=== PATIENT | male | born 1965 | race Caucasian/White ===

== ENCOUNTER 2024-06-17 09:46 | Outpatient (CLI) | payer MEDICARE, SELFPAY ==
--- NOTE | ~2024-06-17 | CT_ITS ---
CT Scan of the Chest without Contrast: Clinical Indication: COPD Technique: Contiguous sections were acquired throughout the chest without intravenous contrast. Dose reduction technique was used on this scan by utilizing automated exposure control and iterative recon struction technique. The dose-length product (DLP) was 605.15 mGy-cm. Findings: Numerous shotty or mildly prominent mediastinal lymph nodes are present. No aortic aneurysm. Mild cor onary artery calcification. No pericardial effusion. Small bilateral pleural effusions, left greater than right.. There is a 6 mm groundglass nodule at the left lung apex (axial image 21). There is curvilinear atele ctasis or scarring in the inferior left upper lobe. There is mild bibasilar dependent atelectatic beatriz nge. Images through the upper abdomen reveal no abnormalities. There is extensive DISH of the spine. Impression: 6 mm groundglass nodule left upper lobe. Consider one-year follow-up exam. Numerous shotty/. Prominent mediastinal lymph nodes, nonspecific. Atelectatic changes, as above. Reviewed, dictated and finalized at location . HYSICAL PROSPECTOR Impression: 6 mm groundglass nodule left upper lobe. Consider one-year follow-up exam. Numerous shotty/. Prominent mediastinal lymph nodes, nonspecific. Atelectatic changes, as above.
--- OUTSIDE RECORDS SUMMARY | 2024-06-17 10:44 | XMS_ITS | Clinical Summary ---
Author Organization [facility] Address [address] [place] [address] Care Team Providers Care Install And Repair Technician Name Role Phone Cal Mercado MD Primary Care Provider Jacob Hernandez MD Unavailable [phone] Allergies No known active allergies Medications SPIRIVA WITH HANDIHALER 18 mcg per inhalation capsuleIndicati ons:Bronchospas m Prevention with COPD,Maintenanc e Therapy for Asthma Place 1 puff (1 capsule total) into inhaler and inhale every morning 2 7 Active metFORMIN (GLUCOPHAGE) 1,000 mg tabletIndicatio ns:type 2 diabetes mellitus Take 1 tablet (1,000 mg total) by mouth 2 (two) times a day with meals Active JARDIANCE 25 mg tabletIndicatio ns:type 2 diabetes mellitus Take 1 tablet (25 mg total) by mouth every morning 4 8 Active buPROPion XL (WELLBUTRIN XL) 150 mg 24 hr tabletIndicatio ns:Anxiety with Depression Take 1 tablet (150 mg total) by mouth every morning Active insulin glargine (LANTUS) 100 unit/mL injectionIndica tions:DM Inject 75 Units under the skin 2 (two) times a day Active rosuvastatin (CRESTOR) 40 mg tabletIndicatio ns:hyperlipidem ia Take 1 tablet (40 mg total) by mouth nightly Active lisinopriL (PRINIVIL,ZESTR IL) 20 mg tabletIndicatio ns:hypertension Take 1 tablet (20 mg total) by mouth every morning Active fenofibrate micronized (LOFIBRA) 200 mg capsuleIndicati ons:hyperlipide kiera Take 1 capsule (200 mg total) by mouth daily before breakfast Active traZODone (DESYREL) 50 mg tabletIndicatio ns:insomnia associated with depression Take 1 tablet (50 mg total) by mouth nightly Active albuterol 2.5 mg /3 mL (0.083 %) nebulizer solutionIndicat ions:Chronic Obstructive Pulmonary Disease Take 3 mL (2.5 mg total) by nebulization every 6 (six) hours as needed for wheezing or shortness of breath Active metoprolol XL (TOPROL-XL) 25 mg extended release tablet Take 1 tablet (25 mg total) by mouth daily 30 tablet 1 Active Additional Information Patient taking differently:25 mg oralEvery morning, Reported on 12/06/2021 Dulera 100-5 mcg/actuation inhalerIndicati ons:Maintenance Therapy for Asthma Inhale 2 puffs 2 (two) times a day 2 Active albuterol HFA (PROVENTIL HFA,VENTOLIN HFA,PROAIR HFA) 90 mcg/actuation inhaler Inhale 2 puffs every 6 (six) hours as needed for wheezing or shortness of breath 2 Active Trulicity 0.75 mg/0.5 mL pen injectorIndicat ions:type 2 diabetes mellitus Inject 0.5 mL (0.75 mg total) under the skin once a week Saturdays 2 Active gabapentin (NEURONTIN) 100 mg capsuleIndicati ons:Neuropathic Pain,Restless Legs Syndrome Take 1 capsule (100 mg total) by mouth nightly 2 Active oxygenIndicatio ns:Dyspnea Administer 6 L/min into each nostril continuously 4-5 while at rest 6L with activity Active acetaminophen (TYLENOL) 500 mg tablet Take 2 tablets (1,000 mg total) by mouth every 6 (six) hours as needed for pain 30 tablet 2 Active ibuprofen (ADVIL,MOTRIN) 200 mg tab/cap Take 3 tablet/capsule (600 mg total) by mouth every 6 (six) hours as needed for pain 30 capsule 2 Active urinary bag miscIndications :Urinary retention Attach urinary leg drainage bag to catheter. Change weekly. 4 each 11 3 Active Active Problems Problem Noted Date Diagnosed Date Acute renal failure, unspecified acute renal lynnette lure type 02/18/2024 Urinary retention 12/06/2021 Retention of urine 07/05/2021 Assessment & Plan (08/31/2021 2:12 PM CDT): Pt has urinary retention and bilateral hydronephrosis due to atonic bladder, with ortega in place Has catheter changed once a month, is currently overdue by 3-4 days, will change catheter now. Creatinine is wnl Elevated troponin 07/06/2020 Chest pain 07/05/2020 Abnormal stress test 07/05/2020 Overview (07/07/2020): Added automatically from request for surgery [id number] Acute on chronic respiratory failure with hypoxe kiera 04/05/2020 Assessment & Plan (04/05/2020 3:38 AM BOW MAKER): Patient normally on 6 L of home oxygen. Currently requiring 8 L. likely secondary to COVID pneumonia. Will start patient on Decadron. Continuous pulse ox if available. Continue to monitor. Pneumonia due to COVID-19 virus 04/05/2020 Assessment & Plan (08/31/2021 2:06 PM CDT): Pt presenting with SOB, cough, wheezing, tested positive for COVID 19, CXR noted with multifocal pneumonia Has been vaccinated for COVID 19 D- Dimer, LDH and ferritin are unremarkable Continue Decadron and Remdesivir for now Monitor SPO2, currently on 5-6 lpm, same as home requirement Cough meds as needed Assessment & Plan (04/05/2020 3:40 AM BOW MAKER): Suspected. Patient was diagnosed on 03/13/2020. Patient was also started on empiric antibiotics for possible community-acquired pneumonia. Will continue at this time. Will check a procalcitonin level. CTA of the chest if possible. Continue supportive care. COPD (chronic obstructive pulmonary disease) (CM S/HCC) 04/04/2020 Assessment & Plan (08/31/2021 2:16 PM CDT): On steroids for COVID pneumonia Continue home meds, dulera switched with symbicort while admitted Cellulitis of left foot 02/03/2020 Muscular chest pain 12/10/2017 Centrilobular emphysema 12/10/2017 Assessment & Plan (04/05/2020 3:40 AM BOW MAKER): Continue breathing treatment Morbid obesity with BMI of 45.0-49.9, adult 11/22 Obstructive sleep apnea 12/10/2017 Assessment & Plan (04/05/2020 3:40 AM BOW MAKER): Continue NPPV Uncontrolled type 2 diabetes mellitus with hyperglycemia, with long-term current use of insulin 12/10/2017 Assessment & Plan (08/31/2021 2:15 PM CDT): Patient is on very high doses of insulin at home- Lantus 75 units bid, along with Trulicity, metformin and Jardiance Here started on Lantus 65 units bid, with 10 units mealtime Lispro, along with NPH for steroid coverage Monitor accuchecks, titrate regimen Assessment & Plan (04/05/2020 3:43 AM BOW MAKER): Patient states he takes 140-150 units of Lantus daily and had missed many doses since he was diagnosed with COVID due to decreased p.o. intake. Patient was started on 60 units of Lantus however sugars are still elevated as patient also received Solu-Medrol. Will increase Lantus to 80 units nightly. Continue high-dose sliding scale. Will order NPH with Decadron. Continue to monitor and adjust as needed. Chronic respiratory failure with hypoxia (CMS/HC C) 12/10/2017 Assessment & Plan (08/31/2021 2:10 PM CDT): On 5 lpm O2 at home, up to 6-7 lpm with exertion, due to underlying COPD Currently on same requirements, continue to monitor Essential hypertension 12/10/2017 Assessment & Plan (08/31/2021 2:10 PM CDT): BP is well controlled with home meds resumed Continue to monitor Shortness of breath 05/26/2014 Overview (07/30/2016): Shortness of breath Cellulitis of toe of left foot Hyperglycemia Immunizations Immunization Administration Dates Next Due Influenza, Quadrivalent, Spl it, Preservative Free, Intramuscular 02/08/2020,03/26/2014 Pneumococcal Polysaccharide PPV23 03/26/2014 Surgical History Surgery Date Site/Laterality Comments EYE SURGERY eye surgery as a child CARDIAC CATHETERIZATION 07/07/2020 TESTICLE SURGERY 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 BLADDER SURGERY 04/24/2021 - 04/23/2022 interstim-bladder Medical History Medical History Date Comments Sleep apnea Sleep apnea Hypertension Hypertension Chronic obstructive pulmonary disease (HCC) COPD Diabetes mellitus (HCC) Diabetes mellitus Coronary artery disease Ventricular tachycardia (HCC) Sick sinus syndrome (CMS/HCC) (HCC) Shortness of breath Chest pain Arthritis Family History Medical History Relation Name Comments Cerebral aneurysm Brother Coronary artery disease Father Coronary artery disease Mother Diabetes Other 1 Family history of Diabetes mellitus; COPD Other 2 Family history of COPD; Anesthesia problems Neg Hx Relation Name Status Comments Brother Father Mother Other 1 Other 2 Social History Tobacco Use Types Packs/Day Years Used Date Smoking Tobacco: Former Cigarettes 1 25 1 977 - 2001 Smokeless Tobacco: Never Tobacco Cessation:Counseling Given: No Alcohol Use Standard Drinks/Week Comments No 0 (1 standard drink = 0.6 oz pur e alcohol) [facility] Utilities Answer Date Recorded In the past 12 months has [employer], gas, oil, or water [employer] threatened to shut off services in your home? No 02/19/2024 Social Connection and Isolat ion Panel [NHANES] Answer Date Recorded In a typical week, how many times do you talk on the phone with family, friends, or neighbors? More than three times a week 02/19/2024 How often do you get togethe r with friends or relatives? Twice a week 02/19/2024 How often do you attend chur ch or spiritism services? Never 02/19/2024 Do you belong to any clubs o r organizations such as cheondoism groups, unions, fraternal or athletic groups, or school groups? No 02/19/2024 How often do you attend meet ings of the clubs or organizations you belong to? Never 02/19/2024 Are you , , di vorced, , never , or living with a partner? 02/19/2024 AUDIT-C Answer Date Recorded Q1: How often do you have a drink containing alc ohol? Monthly or less 02/18/2024 Q2: How many drinks containi ng alcohol do you have on a typical day when you are drinking? 1 or 2 02/18/2024 Q3: How often do you have si x or more drinks on one occasion? Less than monthly 02/18/2024 Overall Financial Resource Strain (CARDIA) Answe r Date Recorded How hard is it for you to pa y for the very basics like food, housing, medical care, and heating? Not hard at all 02/19/2024 PHQ-2 Answer Date Recorded PHQ-2 Total Score (If total score is 3 or more points, staff should administer the PHQ-9) 0 04/04/2020 Hunger Vital Sign Answer Date Recorded Within the past 12 months, y ou worried that your food would run out before you got the money to buy more. Never true 02/19/20 24 Within the past 12 months, t he food you bought just didn't last and you didn't have money to get more. Never true 02/19/2024 PRAPARE - Transportation Answer Date Re corded In the past 12 months, has l ack of transportation kept you from medical appointments or from getting medications? No 01/23 In the past 12 months, has l ack of transportation kept you from meetings, work, or from getting things needed for daily living? No 02/19/2024 Housing Stability Vital Sign Answer Bryant e Recorded In the last 12 months, was t here a time when you were not able to pay the mortgage or rent on time? No 02/19/2024 In the past 12 months, how m any times have you moved where you were living? 0 02/19/2024 At any time in the past 12 m [facility], were you homeless or living in a [facility] (including now)? No 02/19/2024 Personal Safety Answer Date Recorded Have you ever been in or are you currently in a harmful physical or emotional relationship or is someone making you feel afraid or unsafe? Denies 02/18/2024 Sex and Gender Information Value Date Recorded Sex Assigned at Not on file Legal Sex Male 1:14 AM BOW MAKER Gender Identity Not on file Sexual Orientation Not on file Obstetrics History Last Filed Vital Signs Vital Sign Reading Time Taken Comments Blood Pressure 117/60 02/22/2024 7:37 AM CDT Pulse 88 02/22/2024 8:15 AM CDT Temperature 36.1 C (97 F) 02/22/2024 7:37 AM CDT Respiratory Rate 18 02/22/2024 7:37 AM CDT Oxygen Saturation 100% 02/22/2024 7:37 AM CDT Inhaled Oxygen Concentration - - Weight 150 kg (330 lb 11 oz) 02/18/2024 6:38 PM CDT Height 177.8 cm (5' 10 ) 02/18/2024 6:38 PM CDT Body Mass Index 47.45 02/18/2024 6:38 PM CDT Plan of Treatment Health Maintenance Due Date Last Done Comments Albumin Creatinine Ratio, Urine 1963 Colon Cancer Screening-Colonoscopy 1963 Hemoglobin A1C 1963 Hepatitis C Screening 1963 Prostate Cancer Screening-PSA 1963 Dilated Eye Exam 1963 Foot Exam 1963 DTaP/Tdap/Td Vaccine (1 - Tdap) 1974 Hepatitis B Screening 1981 Regular Well Visit/Exam 18-64 1981 Zoster Vaccine (1 of 2) 2013 Pneumococcal vaccine <65 (3 of 3 - PCV20 or PCV21) 02/20/2020 02/19/2015, 03/26/2014 Depression Screening 04/04/2021 04/04/2020, 02/03/20 20 Lipid Panel 07/06/2021 07/06/2020 Covid-19 Vaccine (5 - 2023-2 5 season) 2023 03/23/2021, 07/21/2020, 06/30/2020, Additional history exists Influenza Vaccine (#1) 2023 , 02/08/2020, 04/24/2017, Additional history exists eGFR 02/21/2025 02/22/2024, 01/24, 02/20/2024, Additional history exists Medical Devices Explanted Type Area Engagement Liaison Device Identifier Shelf Expiration Date Model / Serial / Lot Medtronic Inc Interstim 28cm Quadripolar Mri Food Service Steward Neurostimulator [id number] - [id number] Implanted:Qty: 1 on 11/22/2021 by Becca Billingsley MD at [facility] Explanted:Qty: 1 on 12/06/2021 by Filemon Colón MD at [facility] Lead N/A: Sacrum Medtronic Inc 04/20/2023 [id number] / / Medtronic Inc Interstim 100cm Percutaneous Electrode Insulated Kit [id number] - [id number] Implanted:Qty: 1 on 11/22/2021 by Becca Billingsley MD at [facility] Explanted:Qty: 1 on 12/06/2021 by Filemon Colón MD at [facility] Neurostimulator N/A: Sacrum Medtronic Inc 08/12/2023 [id number] / / Procedures Procedure Name Priority Date/Time Associated Diagnosis Comments EGFR Routine 02/22/2024 5:05 AM CDT LIPID PANEL Routine 07/06/2020 7:26 AM CDT from Last 3 Months or Most Recently Relevant to Health Maintenance Results * eGFR (02/22/2024 5:05 AM CDT) eGFR 61 >=60 mL/min/1. 73 m2 Comment: Interpretive Data Reference Interval Normal >/= 90 mL/min/1.73m2 Mildly decreased* 60 - 89 mL/min/1.73m2 Mildly to moderately decreased 45 - 59 mL/min/1.73m2 Moderately to severely decreased 30 - 44 mL/min/1.73m2 Severely decreased 15 - 29 mL/min/1.73m2 Kidney Failure < 15 mL/min/1.73m2 *Relative to young adult level Estimated glomerular filtration rate is determined by the 2020 CKD-EPI equation recommended by the National Kidney Foundation (A Unifying Approach to GFR Estimation: Recommendations of the NKF-ASK Task Force on Reassessing the Inclusion of Race in Diagnosing Kidney Disease, JASN 2020). The CKD-EPI equation should not be used for patients with unstable renal function and has not been validated in children and those over 70. Current interpretive data was last reviewed 2021. Blood 02/22/2024 5:05 AM CDT 02/22/2024 5:37 AM CDT us Essence Macdonald LABORER [facility] LAB BLOOD ORDERABLES Final R esult [facility] ([place]) 1 [facility] [place] [address] * (ABNORMAL) Lipid panel (07/06/2020 7:26 AM CDT) Cholesterol 176 30 - 199 mg/dL [facility] ([place]) Comment: Interpretive Data Ages < or = 19 years Acceptable: <170 mg/dL Borderline high: 170-199 mg/dL High: >or= 200 mg/dL Ages > or = 20 years Desirable: <200 mg/dL Borderline high: 200-239 mg/dL High: >or= 240 mg/dL Literature References: 1. Expert Panel on Integrated Guidelines for Cardiovascular Health and Risk Reduction in Children and Adolescents. Pediatrics 2011;128:S213 2. NCEP Expert Panel. Circulation 2004;110:227 Current Interpretive Data was last revised on 2017. Triglycerides 172(H) <=149 mg/dL [facility] ([place]) Comment: Interpretive Data Ages < or = 9 years Acceptable: <75 mg/dL Borderline high: 75-99 mg/dL High: >or= 100 mg/dL Ages 10 to 20 years Acceptable: <90 mg/dL Borderline high: 90-129 mg/dL High: >or= 130 mg/dL Ages > or = 20 years Desirable: <150 mg/dL Borderline high: 150-199 mg/dL High: 200-499 mg/dL Very high: >or= 499 mg/dL Literature References: 1. Expert Panel on Integrated Guidelines for Cardiovascular Health and Risk Reduction in Children and Adolescents. Pediatrics 2011;128:S213 2. NCEP Expert Panel. Circulation 2004;110:227 Current Interpretive Data was last revised on 2017. HDL 32(L) >=40 mg/dL [facility] ([place]) Comment: Interpretive Data Ages < or = 19 years Acceptable: >45 mg/dL Borderline low: 40-45 mg/dL Low: <40 mg/dL Ages > or = 20 years Desirable: >or= 60 mg/dL Low: <40 mg/dL Literature References: 1. Expert Panel on Integrated Guidelines for Cardiovascular Health and Risk Reduction in Children and Adolescents. Pediatrics 2011;128:S213 2. NCEP Expert Panel. Circulation 2004;110:227 Current Interpretive Data was last revised on 2017. LDL, calculated 110 <=129 mg/dL [facility] ([place]) Comment: Interpretive Data Ages < or = 19 years Acceptable: <110 mg/dL Borderline high: 110-129 mg/dL High: >or= 130 mg/dL Ages > or = 20 years Optimal: <100 mg/dL Near optimal: 100-129 mg/dL Borderline high: 130-159 mg/dL High: >160 mg/dL Literature References: 1. Expert Panel on Integrated Guidelines for Cardiovascular Health and Risk Reduction in Children and Adolescents. Pediatrics 2011;128:S213 2. NCEP Expert Panel. Circulation 2004;110:227 Current Interpretive Data was last revised on 2017. Non-HDL Cholesterol 144 mg/dL [facility] ([place]) Comment: Interpretive Data Ages < or = 19 years Acceptable: <120 mg/dL Borderline high: 120-144 mg/dL High: >145 mg/dL Ages > or = 20 years When triglycerides are >200 mg/dL, Non-HDL cholesterol is a secondary target of therapy with treatment goals that are 30 mg/dL greater than the LDL cholesterol target. Literature References: 1. Expert Panel on Integrated Guidelines for Cardiovascular Health and Risk Reduction in Children and Adolescents. Pediatrics 2011;128:S213 2. NCEP Expert Panel. Circulation 2004;110:227 Current Interpretive Data was last revised on 2017. Chol/HDL ratio 6 [facility] ([place]) Blood specimen (specimen) 07/06/2020 7:26 AM CDT 07/06/2020 7:46 AM CDT us Stan Boss MD LAB BLOOD ORDERABLES Final Re sult [facility] ([place]) 1 [facility] [place] [address] from Last 3 Months or Most Recently Relevant to Health Maintenance Insurance MEDICARE SOLUTIONS MEDICARE [employer] MANAGED MEDICARE GENERIC MEDICARE SOLUTIONS [facility] MEDICARE Address: [address] [address] [place] [address] Advance Directives For more information, please contact: [phone] * Full Code (Latest Code Status on File) Date Activated Date Inactivated Comments 02/18/2024 6:38 PM 02/22/2024 5:33 PM * Full Code Date Activated Date Inactivated Comments 08/30/2021 7:48 PM 09/01/2021 5:26 PM * Full Code Date Activated Date Inactivated Comments 07/05/2020 10:33 PM 07/08/2020 7:03 PM * Full Code Date Activated Date Inactivated Comments 04/04/2020 6:06 PM 04/09/2020 8:13 PM * Full Code Date Activated Date Inactivated Comments 02/03/2020 4:55 PM 02/08/2020 7:17 PM Healthcare Agents on File Name Relationship Healthcare Agent Relationshi p Communication Jenni Hugo Spouse Health Care Agent Care Teams Install And Repair Technician Relationship Specialty Start Date End Date Cal Mercado MD PCP - General Family Medicine 09/15/17 Jacob Hernandez MD Consulting Physician Infectious Diseases 02/08/20
--- OUTSIDE RECORDS SUMMARY | 2024-06-17 10:44 | XMS_ITS | Referral Summary ---
Author Organization [facility] Address [address] [place] [address] Care Team Providers Care Vertical Borer Name Role Phone Cal Mercado MD Primary Care Provider Jacob Hernandez MD Unavailable [phone] Allergies No known active allergies Medications SPIRIVA [...] (07/07/2020): Added automatically from request for surgery [id number] Acute on chronic respiratory failure with hypoxe kiera 04/05/2020 Assessment & Plan (04/05/2020 3:38 AM TRANSPLANT NURSE): Patient normally on 6 L of home [...] needed Assessment & Plan (04/05/2020 3:40 AM TRANSPLANT NURSE): Suspected. Patient was diagnosed on 03/13/2020. Patient [...] 12/10/2017 Assessment & Plan (04/05/2020 3:40 AM TRANSPLANT NURSE): Continue breathing treatment Morbid obesity with BMI of 45.0-49.9, adult 11/22 Obstructive sleep apnea 12/10/2017 Assessment & Plan (04/05/2020 3:40 AM TRANSPLANT NURSE): Continue NPPV Uncontrolled type 2 diabetes mellitus [...] regimen Assessment & Plan (04/05/2020 3:43 AM TRANSPLANT NURSE): Patient states he takes 140-150 units of [...] Free, Intramuscular 02/08/2020,03/26/2014 Pneumococcal Polysaccharide PPV23 03/26/2014 Social History Tobacco Use Types Packs/Day Years Used Date Smoking Tobacco: Former Cigarettes 1 25 1 977 - 2001 Smokeless Tobacco: Never Tobacco Cessation:Counseling Given: No Alcohol Use Standard Drinks/Week Comments No 0 (1 standard drink = 0.6 oz pur e alcohol) [facility] Utilities Answer Date Recorded In the past 12 months has th e [employer], gas, oil, or water [employer] threatened to shut off services in your [...] often do you attend chur ch or methodist services? Never 02/19/2024 Do you belong to any clubs o r organizations such as taoism groups, unions, fraternal or athletic groups, or [...] any time in the past 12 m [facility], were you homeless or living in a residential (including now)? No 02/19/2024 Personal Safety Answer Date Recorded Have you ever been in or are you currently in a harmful physical or emotional relationship or is someone making you feel afraid or unsafe? Denies 02/18/2024 Sex and Gender Information Value Date Recorded Sex Assigned at Not on file Legal Sex Male 1:14 AM TRANSPLANT NURSE Gender Identity Not on file Sexual Orientation Not on file Last Filed Vital Signs Vital Sign Reading [...] 02/18/2024 6:38 PM CDT Plan of Treatment Not on file Medical Devices Explanted Type Area Curtain Roller Assembler Device Identifier Shelf Expiration Date Model / Serial / Lot Medtronic Inc Interstim 28cm Quadripolar Mri Manager Etl Neurostimulator [id number] - [id number] Implanted:Qty: 1 on 11/22/2021 by Becca Billingsley MD at [facility] Explanted:Qty: 1 on 12/06/2021 by Filemon Colón MD at [facility] Lead N/A: Sacrum Med[employer] Inc 04/20/2023 [id number] / / [employer] Interstim 100cm Percutaneous Electrode Insulated Kit [id number] - [id number] Implanted:Qty: 1 on 11/22/2021 by Becca Billingsley MD at [facility] Explanted:Qty: 1 on 12/06/2021 by Filemon Colón MD at [facility] Neurostimulator N/A: Sacrum [employer] Inc 08/12/2023 [id number] / / Procedures Procedure Name Priority Date/Time [...] 02/22/2024 5:37 AM CDT us Essence Macdonald NP LAB BLOOD ORDERABLES Final R esult [facility] ([place]) 1 [facility] [place] [address] * (ABNORMAL) Lipid panel (07/06/2020 7:26 AM [...] MD LAB BLOOD ORDERABLES Final Re sult [facility] ([place]) 1 [facility] [place] [address] from Last 3 Months or Most Recently Relevant to Health Maintenance Insurance MEDICARE SOLUTIONS MEDICARE [facility] MANAGED MEDICARE GENERIC MEDICARE SOLUTIONS Advance Directives For more information, please contact: [phone] * Full Code (Latest Code Status on [...] Hugo Spouse Health Care Agent Care Teams Vertical Borer Relationship Specialty Start Date End Date Cal Mrecado MD PCP - General Family Medicine 09/15/17 Jacob Hernandez MD Consulting Physician Infectious Diseases 02/08/20
--- OUTSIDE RECORDS SUMMARY | 2024-06-17 10:44 | XMS_ITS | Clinical Summary ---
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 Take 1 tablet by mouth twice daily for 5 doses 4 Active metoprolol Succinate (Toprol XL) 25 MG TABLET SR 24 HR Take 25 mg by mouth daily. Take 1 tablet by mourth daily Active rosuvastatin (CRESTOR) 40 MG Tablet Take 40 mg by mouth daily. Take 1 tablet by mouth at bedtime Active buPROPion SR (WELLBUTRIN SR) 150 MG TABLET SR 12 HR Take 150 mg by mouth daily. Take 1 tablet by mouth daily Active metFORMIN (GLUCOPHAGE) 1000 MG Tablet Take 1,000 mg by mouth 2 times daily (with meals). take 1 tablet by mouth twice daily with meals Active empagliflozin (Jardiance) 25 MG Tablet Take 25 mg by mouth daily. take 1 tablet by mouth daily Active Fenofibrate 200 MG Capsule Take 1 Capsule by mouth daily. take 1 capsule by mouth daily Active gabapentin (NEURONTIN) 100 MG Capsule Take 100 mg by mouth nightly. Take 1 capsule by mouth at bedtime Active traZODone (DESYREL) 50 MG Tablet Take 50 mg by mouth nightly as needed for Sleep. Take 1 tablet by mouth daily at bedtime as needed for insomnia Active acetaminophen (TYLENOL) 500 MG Tablet Take 1,000 mg by mouth every 6 hours as needed for Mild or more severe pain. Take 1000 mg by mouth every 6 hours as needed for pain Active insulin glargine (LANTUS) 100 UNIT/ML Solution 75 Units by Subcutaneous route 2 times daily (before meals). Inject 75 units subcutaneously 2 times daily before meals Active ibuprofen (MOTRIN) 200 MG Tablet Take 600 mg by mouth every 6 hours as needed for Mild or more severe pain. Take 600 mg every 6 hours as needed for pain Active tiotropium (Spiriva HandiHaler) 18 MCG Capsule take 1 Capsule by inhalation every morning. Take 1 capsule by inhalation every morning Active dulaglutide (Trulicity) 0.75 MG/0.5ML Solution Pen-injector injection 0.75 mg by Subcutaneous route once a week. Take .75 mg subcutaneously weekly, Saturdays Active albuterol (PROVENTIL, VENTOLIN) (2.5 MG/3ML) 0.083% Nebulizer Soln 2.5 mg by Nebulization route every 6 hours as needed for Cough, Shortness of Breath or Wheezing. inhale 2.5mg by nebulizer every 6 hours as needed for cough, shortness of breath or wheezing Active Dulaglutide (Trulicity) 4.5 MG/0.5ML Solution Auto-injector 4.5 mg by Subcutaneous route once a week. take 4.5mg subcutaneously under the skin weekly Active QUEtiapine (SEROquel) 100 MG Tablet Take 100 mg by mouth daily. take 1 and 1/2 tablets by mouth daily 4 Active Encounters Date Type Department Care Team Description 03/22/2024 9:30 AM HAND LAMINATOR Home Care Visit [facility] [address] [place] [address] Beatriz Reyes, OT OT - OASIS DISCHARGE from Last 3 Months Social History Tobacco Use Types Packs/Day Years Used Date Smoking Tobacco: Never Assessed Sex and Gender Information Value Date Recorded Sex Assigned at Not on file Legal Sex Male 9:27 PM CDT Gender Identity Not on file Sexual Orientation Not on file Last Filed Vital Signs Vital Sign Reading Time Taken Comments Blood Pressure 118/58 03/22/2024 10:28 AM HAND LAMINATOR Pulse 78 03/22/2024 10:28 AM HAND LAMINATOR Temperature 36.1 C (97 F) 03/22/2024 10:28 AM HAND LAMINATOR Respiratory Rate 18 03/22/2024 10:28 AM HAND LAMINATOR Oxygen Saturation 98% 03/22/2024 10:28 AM HAND LAMINATOR 6L of oxygen Inhaled Oxygen Concentration - - Weight 144.2 kg (318 lb) 02/29/2024 1:29 PM HAND LAMINATOR Height 177.8 cm (5' 10 ) 02/29/2024 1:29 PM HAND LAMINATOR Body Mass Index 45.63 02/29/2024 1:29 PM HAND LAMINATOR Plan of Treatment Health Maintenance Due Date Last Done Comments Hepatitis C Virus (HCV) Screening 1965 Colonoscopy 2008 Colorectal Cancer Screening 2008 Cologuard 2013 Immunochemical Fecal Occult Blood 2013 PSA Discussion 2018 Pneumococcal Immunization (50+ years) (3 of 3 - PCV20 or PCV21) 02/20/2020 02/19/2015, 03/26/2014 Influenza Immunization (#1) 12/24/202303/24, 02/02/2022, 03/23/2021, Additional history exists SARS-COV-2 Immunization ( season) 2023 04/05/2023, 02/02/2022, 03/23/2021, Additional history exists Zoster Immunization (2 of 2) 02/07/2024 12/13/2023 Pneumococcal Immunization Combined Discontinued 02/19/2015, 03/26/2014 TdaP Immunization Completed 06/06/2022 Respiratory Syncytial Virus (RSV) Immunization (Adult) Completed 12/13/2023 Hepatitis B Immunization Aged Out No longer eligible based on patient's age to complete this topic Meningococcal Immunization (ACWY) Aged Out No longer eligible based on patient's age to complete this topic Rotavirus Immunization Aged Out No lo nger eligible based on patient's age to complete this topic Insurance MEDICARE C [employer] Advance Directives * Full Code (Latest Code Status on File) Date Activated Date Inactivated Comments 02/29/2024 6:16 PM Care Teams Assembly Machine Tool Setter Relationship Specialty Start Date End Date Cal Mercado MD [address] [place] [address] PCP - General Family Medicine 02/28/24
--- OUTSIDE RECORDS SUMMARY | 2024-06-17 10:44 | XMS_ITS | Data Portability ---
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 His diabetes is complicated with microvascular complications including peripheral neuropathy and nephropathy His A1c was 6.4 % indicates good glycemic control, CGM was reviewed with the patient. His Glycemic control is highly variable, which is most likely secondary to variable amount of carbohydrate intake with meals. Importance of compliance with diabetic diet was discussed with him. He will continue current diabetes regimen. 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 Obesity: worsened. BMI 46. start TLC HTN. Blood pressure controlled with current treatment RTC in 6 months montez Not available 09/06/2023 13:14:02 04/10/2024 04/10/2024 A 58 years old male with type 2 diabetes, hyperlipidemia, hypertension, obesity came in for follow-up. His diabetes is complicated with microvascular complications including peripheral neuropathy and nephropathy His A1c was 5.5 % has improved since last visit, his CGM was downloaded and reviewed with the patient, interpretation as above. Since overnight his blood sugars are trending down, I will decrease his basal insulin. Postmeal hyperglycemia, will start him on glipizide. Risk-benefit and side effects were discussed. 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 Continue fenofibrate and Crestor. and work on diet. Obesity: He lost 5 pounds since last visit, BMI 46. start TLC HTN. Blood pressure controlled with current treatment RTC in 4 months montez Not available 04/10/2024 10:39:57 Plan of Treatment Reminders Order Date Submit Date Provider Last Modified By Organization Details Last Modified Time Details Appointments [facility] Patient 15.EST 2024 02:30P M Dr. Kamini John Not available Not available Not available Lab HbA1c (hemoglo bin A1c), blood 2023 024 [facility] ([place]), [address] [place] [address], [phone], 04/10/2024 11:54:30 HbA1c (hemoglo bin A1c), blood 2023 024 [facility] ([place]), [address] [place] [address], [phone], 09/06/2023 15:23:37 CMP, serum or plasma 2023 024 [facility] [place] [facility], [address] [place] [address], [id number], 11/23/2023 13:44:29 microalb umin, urine 2023 024 [facility] Only - [place] [facility], [address] [place] [address], [id number], 11/23/2023 13:34:17 vitamin B12, serum [address] Only - [facility], [address] [place] [address], [address], 12/11/2023 10:18:50 lipid panel, serum [address] Only - [facility], [address] [place] [address], [id number], 12/11/2023 10:18:49 Referral None recorded . Procedures None recorded . Surgeries None recorded . Imaging None recorded . Medication Orders glipizid e ER 2.5 mg tablet, extended release 24 hr 2023 024 [id number], [address], [place], [phone], 04/10/2024 10:27:22 Patient TargetsNo targets recorded. Patient InstructionsNo instructions recorded. Reason for Referral None Reported. Results Created Date Observation Date Name Description Value Unit Range Abnormal Flag Note LastModifiedBy Organization Detail LastModifiedTime 09/06/1909/06/2023 HbA1c (hemo globi n A1c), blood HbA1c 6.4% Not Available [facility] ([place]) [address] [place], [address], 09/06/2023 09:56:50 04/10/20 24 04/10/2024 HbA1c (hemo globi n A1c), blood HbA1c 5.6% Not Available [facility] ([place]) [address] [place], [address], 04/08/2024 13:53:04 02/20/20 24 05/09/2023 imagi ng/di agnos tic resul t No observ ation record ed. [email or web address] Not Available 22:49:03 02/20/2007/29/2023 imagi ng/di agnos tic resul t No observ ation record ed. [email or web address] Not Available 22:49:05 Result Notes None recorded. Problems Name Problem SNOMED Code Status Onset Date Resolution Date Notes Provider Name and Address Organization Details Recorded Time Morbid obesity 657048618 Active 2023 Kamini John MD [address] , [facility] [place], [address], [facility] 4 10:40:06 Type 2 diabetes mellitus 37113577 Active 2023 Rohit Rodriguez, [facility] 4 09:56:39 Obesity 634806081 Active 2023 Kamini John MD [address] [facility], [place], [address], [facility] 4 12:51:01 Essential hypertension 80520703 Active 2023 Kamini John MD [address] , [facility] [place], [address], [facility] 4 12:51:05 Hyperlipidemia 52898759 Active 2023 Kamini John MD [address] , [facility] [place], [address], [facility] 4 12:51:09 Diabetic peripheral neuropathy 089807071 Active 2023 Kamini John MD [address] , [facility] [place], [address], [facility] 4 12:51:16 Problem Notes None recorded. Procedures Surgical History Date Name Laterality Status Provider Name and Address Organization Details Recorded Time Colonoscopy with biopsy completed Not Available Health Note 09/05/2023 13:32:54 Imaging Results Imaging Date Name Status LastModified by Organ ation Details LastModified Time 05/09/2023 imaging/diag nostic result completed Information not available 02/20/2024 22:49:03 07/29/2023 imaging/diag nostic result completed Information not available 02/20/2024 22:49:05 Procedure Notes None recorded. Medical Equipment None Reported. Medications Name Sig Start Date Stop Date Status Note LastModified by Organization Details LastModified Time Prescript ion - New active Spanish Tutor: YANI HOFFMAN ([facility] Pulmonar y Medicine ) , Durable [facility] Equipmen t Not Available Not Available Not Available insulin syringe/u -100/1ml/ 31g x 5/ 6 31g x 5/16 1 ml misc active Not Available Not Available Not Available quetiapin e 25 mg tablet TAKE 1 TABLET BY MOUTH DAILY 04/10 completed Not Available Not Available Not Available furosemid e 40 mg tablet TAKE 1 TABLET BY MOUTH DAILY NEEDED active Not Available Not Available No t Available venlafaxi ne ER 37.5 mg capsule,e xtended release 24 hr TAKE 1 CAPSULE BY MOUTH DAILY FOR 7 DAYS 04/10 completed Not Available Not Available Not Available venlafaxi ne ER 75 mg capsule,e xtended release 24 hr TAKE 1 CAPSULE BY MOUTH DAILY 04/10 completed Not Available Not Available Not Available trazodone 50 mg tablet TAKE 1 TABLET BY MOUTH DAILY AT BEDTIME NEEDED FOR INSOMNIA active Not Available Not Available No t Available lisinopri l 20 mg tablet TAKE 1 TABLET BY MOUTH DAILY active Not Available Not Available No t Available Lantus U-100 Insulin 100 unit/mL subcutane ous solution ADMINIST ER 80 UNITS UNDER THE SKIN TWICE DAILY active Not Available Not Available No t Available venlafaxi ne ER 150 mg capsule,e xtended release 24 hr TAKE 1 CAPSULE BY MOUTH DAILY active Not Available Not Available No t Available acetamino phen 300 mg-codein e 30 mg tablet TAKE 1 TABLET BY MOUTH EVERY 4 TO 6 HOURS NEEDED FOR PAIN DO NOT TAKE MORE THAN 5 TABLETS IN 24 HOURS active Not Available Not Available No t Available sulfameth oxazole 800 mg-trimet hoprim 160 mg tablet TAKE 1 TABLET BY MOUTH TWICE DAILY FOR 5 DOSES 04/10 completed Not Available Not Available Not Available fenofibra te micronize d 200 mg capsule TAKE 1 CAPSULE BY MOUTH DAILY active Not Available Not Available No t Available quetiapin e 100 mg tablet TAKE 1 AND 1/2 TABLETS BY MOUTH DAILY active Not Available Not Available No t Available glipizide ER 2.5 mg tablet, extended release 24 hr Take 1 tablet every day by oral route. 2023 active Not Available Not Available Not Avai lable metformin 1,000 mg tablet TAKE 1 TABLET BY MOUTH TWICE DAILY active Not Available Not Available No t Available nitrofura ntoin macrocrys mery 100 mg capsule TAKE 1 CAPSULE BY MOUTH TWICE DAILY 04/10 completed Not Available Not Available Not Available gabapenti n 100 mg capsule TAKE 1 CAPSULE BY MOUTH AT BEDTIME active Not Available Not Available No t Available metoprolo l succinate ER 25 mg tablet,ex tended release 24 hr TAKE 1 TABLET BY MOUTH DAILY active Not Available Not Available No t Available fluticaso ne propionat e 50 mcg/actua tion nasal spray,abhay pension SHAKE LIQUID AND USE 2 SPRAYS IN EACH NOSTRIL DAILY active Not Available Not Available No t Available amoxicill in 875 mg-potass ium clavulana te 125 mg tablet TAKE 1 TABLET BY MOUTH TWICE DAILY 04/10 completed Not Available Not Available Not Available rosuvasta tin 40 mg tablet TAKE 1 TABLET BY MOUTH EVERY NIGHT AT BEDTIME active Not Available Not Available No t Available bupropion HCl XL 300 mg 24 hr tablet, extended release TAKE 1 TABLET BY MOUTH DAILY active Not Available Not Available No t Available bupropion HCl XL 150 mg 24 hr tablet, extended release TAKE 1 TABLET BY MOUTH DAILY 04/10 completed Not Available Not Available Not Available metoprolo l tartrate 25 mg tablet TAKE 1/2 TABLET BY MOUTH DAILY 04/10 completed Not Available Not Available Not Available quetiapin e 50 mg tablet TAKE 1 TABLET BY MOUTH DAILY active Not Available Not Available No t Available TRUEplus Insulin 1 mL 31 gauge x 16 syringe USE DIRECTED DAILY active Not Available Not Available No t Available Jardiance 25 mg tablet TAKE 1 TABLET BY MOUTH DAILY active Not Available Not Available No t Available Trulicity 1.5 mg/0.5 mL subcutane ous pen injector INJECT 1.5 MG SUBCUTAN EOUS EVERY WEEK 04/10 completed Not Available Not Available Not Available Wixela Inhub 250 mcg-50 mcg/dose powder for inhalatio n INHALE 1 PUFF BY MOUTH TWICE DAILY active Not Available Not Available No t Available Trulicity 4.5 mg/0.5 mL subcutane ous pen injector ADMINIST ER 4.5 MG UNDER THE SKIN WEEKLY active Not Available Not Available No t Available Vitals Date Recorded Body height Body weight Heart rate Oxygen saturation Oxygen saturation in Arterial blood by Pulse oximetry Inhaled oxygen flow rate Systolic blood pressure Diastolic blood pressure Provider Name and Address Organization Details Last Updated DateTime 4 177.8 cm 287205. 89 g 98 /min 96 % 96 % 6 L/min 112 mm[Hg] 66 mm[Hg] Rohit [facility] 4 12:43:36 Date Recorded Body height Body mass index (BMI) Body weight Heart rate Oxygen saturation Oxygen saturation in Arterial blood by Pulse oximetry Systolic blood pressure Diastolic blood pressure Provider Name and Address Organization Details Last Updated DateTime 4 177.8 cm 46.6 kg/m2 871870. 08 g 89 /min 99 % 99 % 128 mm[Hg] 66 mm[Hg] Christy Jolley [facility] 4 10:20:29 Social History Question Answer Notes LastModified by Organizat ion Details LastModified Time Do You Have An Advance Directive? No [email or web address] Information not available 09/05/2023 What Is Your Level Of Alcohol Consumption? Occasional [email or web address] Information not available 09/05/2023 How Many Times Per Week Do You Consume Alcohol? Less Than 1 Time Per Week [email or web address] Information not available 09/05/2023 What Is Your Level Of Caffeine Consumption? Moderate [email or web address] Information not available 09/05/2023 Are You Currently Employed? No [email or web address] Information not available 09/05/2023 What Is Your Occupation? Disabled [email or web address] Information not available 09/05/2023 How Many Times Per Week Do You Exercise? 1-2 Times Per Week [email or web address] Information not available 09/05/2023 When Did You Quit Smoking? 2001 [email or web address] Information not available 09/05/2023 Do You Have A Medical Power Of Surgical Aides Teacher? No [email or web address] Information not available 09/05/2023 What Was The Date Of Your Most Recent Tobacco Screening? 09/06/2023 [email or web address] Information not available 09/05/2023 What Is Your Relationship Status? [email or web address] Information not available 09/05/2023 Do You Use Any Illicit Or Recreational Drugs? No [email or web address] Information not available 09/05/2023 Sex: Unknown Functional Status Question Answer Note LastModified by Organizat ion Details LastModified Time What is your exercise level? Occasional [email or web address] Information not available 09/05/2023 Mental Status None recorded. Family History Relationship Description Onset Age of this Age Resolved Age Notes LastModified by Organization Details LastModified Time Mother Arthritis [email or web address] Not available 09/05/2023 13:32:53 Mother Asthma [email or web address] Not available 13:32:53 Mother Chronic obstructive pulmonary disease [email or web address] Not available 2023 13:32:53 Mother Diabetes mellitus [email or web address] Not available 2023 13:32:53 Mother Heart disease [email or web address] Not available 2023 13:32:53 Father Arthritis [email or web address] Not available 09/05/2023 13:32:53 Father Diabetes mellitus [email or web address] Not available 2023 13:32:53 Father Heart disease [email or web address] Not available 2023 13:32:53 Brother Diabetes mellitus [email or web address] Not available 2023 13:32:53 Brother Heart disease [email or web address] Not available 2023 13:32:53 Medical History Condition Response Diabetes Y Anxiety Disorder N Bleeding Disorder N Attention-deficit Hyperactivity Disorder N High Blood Pressure N Arthritis Y Hyperlipidemia N Cancer N Stroke N Thyroid Problems N Asthma N Depression Y COPD Y Anemia N Seizures N Heart Disease Y Fibromyalgia N Osteoporosis N Kidney Disease N Past Encounters Encounter ID Performer Location Encounter Start Date Encounter Closed Date Diagnosis/Indication Diagnosis SNOMED-CT Code Diagnosis ICD10 Code Diagnosis Note [id number] Kamini John MD [facility] [address] [place] [address] 09/06/2023 12:29:17 09/06/2023 16:01:49 Type 2 diabetes mellitus 20219328 E11.40 Obesity 596698028 E66.9 Essential hypertension 02845012 I10 Hyperlipidemia 48452681 E78.5 Diabetic p eripheral neuropathy 947632637 E11.40 Long-term current use of insulin 887737145 Z79.4 [id number] Kamini John MD [facility]) [address] [place] [address] 04/10/2024 09:59:53 04/10/2024 10:35:59 Type 2 diabetes mellitus 81589314 E11.40 Essential hypertension 35890080 I10 Hyperlipidemia 75072113 E78.5 Diabetic p eripheral neuropathy 410593795 E11.40 Long-term current use of insulin 531409133 Z79.4 Morbid obesity 586949135 E66.01 Health Concerns Section Related Observation LastModified by Organization Detai ls LastModified Time None Recorded Concern Status LastModified by Organization Details LastModified Time None Recorded Advance Directives Directive N: Payers Encounter Date Sequence Insurance Name Policy Number Policy Murphy Covered Member ID Murphy Member ID Guarantor Name 09/06/2023 1 [place] Geo Hugo [id number] Geo Hugo 09/06/2023 2 [place] [facility] Geo Hugo [id number] Geo Hugo 04/10/2024 1 [facility] (MEDICARE REPLACEMENT/A DVANTAGE - PPO) [id number] Geo Hugo [id number] Geo Hugo Notes Date Note Type Note Provider Name and Address Organization Details Recorded Time 4 text/html Mr. Hugo is a follow-up of his type 2 diabetes. Patient has history of COPD and on oxygen via nasal cannula and he has a suprapubic catheter. Patient has history of longstanding type 2 diabetes. His last A1c was 5.6% today he returns for follow-up and his A1c was 6.4 % . He gained 5 pounds since last visit [ 324 --> 329 Ib] BMI 46 Current medicationsMetformin 1000 mg twice a dayLantus 70 units BIDTrulicity 4.5 mg weekly He is tolerating Trulicity denies any side effect . Jardiance was stopped because of frequent UTI. he has suprapubic indwelling catheter He is on freestyle syeda , however he was not getting his freestyle syeda today, I reviewed his CGM and his phone, his blood sugars are highly variable, no hypoglycemia No hypoglycemia unawareness. DM Complications Survey :Diabetic retinopathy screening: He follows up at [place], [place]. He had an eye exam on 09/05/2023, No DrNeuropathy: H/o peripheral neuropathy with foot ulcer and onychomycosis. 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 He is on gabapentin for his neuropathy. He denies any worsening of paresthesias on feet.Nephropathy: Patient is on lisinopril. Patient follows up with his urologist for BPH. Patient has a suprapubic catheter in place. H/o recurrent UTI.No known Macrovascular complications. HLD: He is treated with rosuvastatin 40 mg daily and fenofibrate 200 mg daily. Tolerating it well denies any side effect. patient follows up with his circulation representative. HTN. He is treated with lisinopril and metoprolol. blood pressure controlled, denies shortness of breath, swelling on lower extremity, chest pain or headache. The above information was reviewed with the patient today during his visit and updated as necessary. Kamini John MD [address] [place] [address], [address], [facility] 09/06/2023 13:14:51 4 text/html Mr. Hugo is a follow-up of his type 2 diabetes. Patient has history of COPD and on oxygen via nasal cannula and he has a suprapubic catheter. Patient has history of longstanding type 2 diabetes. His last A1c was 6.4%, today he returns for follow-up and his A1c was 5.5 % . He lost 5 pounds since last visit [ 329 --> 324 Ib] BMI 46 Current medicationsMetformin 1000 mg twice a dayLantus 80 units BIDTrulicity 4.5 mg weekly He is tolerating Trulicity denies any side effect . Jardiance was stopped because of frequent UTI. he has suprapubic indwelling catheter He is on freestyle syeda , which was downloaded and reviewed with the patientLast 2 weeks download.Average blood sugar 167.Severe hypoglycemia 6%Hypoglycemia 27%In target range 67%Hypoglycemia 0%.Interpretation overnight blood sugars are trending down postmeal hyperglycemia, blood sugars are highly variable No hypoglycemia unawareness. DM Complications Survey :Diabetic retinopathy screening: He follows up at [place], [place]. He had an eye exam on 09/05/2023, No DrNeuropathy: H/o peripheral neuropathy with foot ulcer and onychomycosis. 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 He is on gabapentin for his neuropathy. He denies any worsening of paresthesias on feet.Nephropathy: Patient is on lisinopril. Patient follows up with his urologist for BPH. Patient has a suprapubic catheter in place. H/o recurrent UTI.No known Macrovascular complications. HLD: He is treated with rosuvastatin 40 mg daily and fenofibrate 200 mg daily. Tolerating it well denies any side effect. patient follows up with his circulation representative. HTN. He is treated with lisinopril and metoprolol. blood pressure was in good range in clinic, he does not check his blood pressure at home, denies shortness of breath, swelling on lower extremity, chest pain or headache. The above information was reviewed with the patient today during his visit and updated as necessary. Kamini John MD [address] [facility], [place], [address], [facility] 04/10/2024 10:41:11
--- OUTSIDE RECORDS SUMMARY | 2024-06-17 10:44 | XMS_ITS | Clinical Summary ---
Author Organization [facility] Address [facility] [place] [address] Care Team Providers Care Teacher Of The Visually Impaired Name Role Phone Cal Mercado MD Primary Care Provider Chelsey Pickett MD Unavailable Allergies No known active allergies Medications fluticasone propionate 50 MCG/ACT nasal spray 2 sprays by Nasal route daily. Active albuterol sulfate HFA 108 (90 Base) MCG/ACT inhaler Inhale 2 puffs into the lungs every 6 (six) hours as needed for Wheezing. Active SYMBICORT 160-4.5 MCG/ACT inhaler INL 2 PFS PO TWICE DAILY. RM AFTER U 3 03/26/2019 Active buPROPion XL (WELLBUTRIN XL) 300 MG 24 hr tablet Take 1 tablet (300 mg total) by mouth daily. 1 03/26/2019 Active LANTUS 100 UNIT/ML injection (VIAL) Inject 75 Units into the skin 2 (two) times daily. 3 03/27/2019 Active metFORMIN 1000 MG tablet 1,000 mg 2 (two) times daily with meals. 03/28/2019 Active JARDIANCE 25 MG tablet Take 25 mg by mouth daily. 4 03/26/2019 Active lisinopril 20 MG tablet Take 20 mg by mouth daily. Active metoprolol succinate ER 25 MG 24 hr tablet Take 25 mg by mouth daily. 09/15/2021 Active gabapentin 100 MG capsule Take 100 mg by mouth nightly. Active rosuvastatin 40 MG tablet Take 40 mg by mouth nightly at bedtime. Active Fenofibrate Micronized (LOFIBRA) 200 MG Cap capsule Take 1 capsule (200 mg total) by mouth daily. with food. Active metoprolol tartrate (LOPRESSOR) 25 MG tablet Take 0.5 tablets (12.5 mg total) by mouth daily. Active dulaglutide (TRULICITY) 1.5 MG/0.5ML injection Inject 1.5 mg into the skin once a week. Active venlafaxine XR (EFFEXOR-XR) 37.5 MG 24 hr capsule Take 1 capsule (37.5 mg total) by mouth daily. Active fluticasone-rob meterol (ADVAIR DISKUS) 250-50 MCG/ACT inhaler Inhale 1 puff into the lungs 2 (two) times daily. Active QUEtiapine XR (SEROQUEL XR) 50 MG 24 hr tablet Take 1 tablet (50 mg total) by mouth daily. Active Active Problems Problem Noted Date Diagnosed Date Pneumonia 11/01/2021 Shoulder impingement, right 12/12/2019 Chronic respiratory failure with hypoxia ([facility]) 12/10/2017 Overview (11/02/2021): Last Assessment & Plan: On 5 lpm O2 at home, up to 6-7 lpm with exertion, due to underlying COPD Currently on same requirements, continue to monitor Obstructive sleep apnea 12/10/2017 Overview (11/02/2021): Last Assessment & Plan: Continue NPPV Essential hypertension 12/10/2017 Overview (11/02/2021): Last Assessment & Plan: BP is well controlled with home meds resumed Continue to monitor Chest pain of uncertain etiology 12/28/2015 Hyperlipidemia Diabetes ([facility]) Hypertension COPD, severity to be determined Resolved Problems Problem Noted Date Diagnosed Date Resolved Date Shortness of breath 05/26/2014 11/04/19 22 Overview (11/02/2021): Shortness of breath Encounters Date Type Department Care Team Description 05/16/2024 10:15 AM CARTON INSPECTOR [facility] [address] [address] Xavier Crockett, JU Routine Foot Care 05/16/2024 Travel from Last 3 Months Immunizations Name Administration Dates Next Due Influenza (Generic) 04/24/2017, 7,03/02/2016,2014 Influenza Adult (Generic) 03/23/2021,02/08/2020, 03/26/2014 PFIZER COVID-19 (ORIGINAL FORMULATION, PURPLE CAP) mRNA, LNP-S, PF, 30 MCG/0.3 ML DOSE 04/24/2020 Pneumococcal (Pneumovax 23) 03/26/2014 Pneumococcal (Prevnar 13) 02/19/2015 Family History Medical History Relation Comments Heart Father COPD Mother Relation Status Comments Father Mother Social History Tobacco Use Types Packs/Day Years Used Date Smoking Tobacco: Former Smokeless Tobacco: Former Quit: 2000 Alcohol Use Standard Drinks/Week Comments Yes 0 (1 standard drink = 0.6 oz pur e alcohol) socially, infrequently Sex and Gender Information Value Date Recorded Sex Assigned at Male 05/13/2024 1:28 PM CARTON INSPECTOR Legal Sex Male 4:55 PM CDT Gender Identity Not on file Sexual Orientation Not on file Occupation Industry Job Start Date Job End Date disabled Not on file Not on file Not on file Last Filed Vital Signs Vital Sign Reading Time Taken Comments Blood Pressure 123/57 03/04/2024 12:03 PM CARTON INSPECTOR Pulse 80 03/04/2024 12:03 PM CARTON INSPECTOR Temperature 35.4 C (95.8 F) 11/03/2021 4:41 AM CDT Respiratory Rate 20 03/04/2024 12:03 PM CARTON INSPECTOR Oxygen Saturation 92% 11/03/2021 8:04 AM CDT Inhaled Oxygen Concentration - - Weight 137 kg (302 lb) 05/16/2024 10:11 AM CARTON INSPECTOR Height 177.8 cm (5' 10 ) 05/16/2024 10:11 AM CARTON INSPECTOR Body Mass Index 43.33 05/16/2024 10:11 AM CARTON INSPECTOR Plan of Treatment Upcoming Encounters Date Type Department Care Team (Late st Contact Info) Description 08/15/2024 10:30 AM CDT Office Visit [facility] [place] [id number] [place] [address] Xavier Crockett, DPM [address] [place] [address] 09/30/2024 2:00 PM CDT Office Visit [facility] [place] [address] Chelsey Pickett MD [address] [place] [address] Health Maintenance Due Date Last Done Comments ASCVD LDL 1963 ASCVD Statin 1963 Colorectal Cancer Screening Colonoscopy (10 Years) 1963 Kidney Health Evaluation 1963 Hemoglobin A1C 1963 Lipid Panel 1963 Annual Physical 1966 Diabetes: Retinopathy Eye Exam 1981 Hepatitis C 1981 DTaP, Tdap and Td Vaccines (1 - Tdap) 1982 Zoster Vaccines (1 of 2) 2013 RSV Immunization or 60+ Years (1 - Risk 60-74 years 1-dose series) 2023 COVID-19 Vaccine (5 - season) 2023 03/23/2021, 07/21/2020, 06/30/2020, Additional history exists Influenza Adult (#1) 2024 03/23/2021, 02/08/2020, 04/24/2017, Additional history exists Pneumococcal Vaccine: Pediatrics (0 to 5 Years) and At-Risk Patients (6 to 64 Years) (3 of 3 - PPSV23 or PCV20) 2028 02/19/2015, 03/26/2014 Meningococcal B Vaccine Aged Out No l onger eligible based on patient's age to complete this topic Meningococcal Vaccine Aged Out No pat jennifer eligible based on patient's age to complete this topic RSV Immunizations Under 20 Months Aged Out No longer eligible based on patient's age to complete this topic Goals Goal Patient Goal Type Associated Problems Recent Progress Patient-Stated? Author Safety Patient/family will have appropriate support at home upon discharge General Jessica Salas, COATER OPERATOR Insurance Member Subscriber Plan / Payer ( fective 2023-Present) Name:Geo Hugo Relation to Subscriber:Self Name:Geo Hugo Payer ID:[id number] (NAIC) Type:Not on file Address: [place] [phone] Member Subscriber Plan / Payer ( fective 2023-Present) Name:Geo Hugo Relation to Subscriber:Self Name:Geo Hugo Payer ID:[id number] (NAIC) Type:Not on file Address: [place] [phone] Advance Directives * Full Code (Latest Code Status on File) Date Activated Date Inactivated Comments 11/01/2021 7:30 PM 11/03/2021 6:30 PM Care Teams Teacher Of The Visually Impaired Relationship Specialty Start Date End Date Cal Mercado MD [address] [place] [phone] PCP - General FAMILY PRACTICE 12/12/19 Chelsey Pickett MD [address] [place] [address] [place] Director Service CARDIOVASCULAR DISEASE 02/16/24
== END 2024-06-17 09:47 | disposition home or self-care (01) ==
LOC: CHSIMG 09:48
PROVIDERS: PCP Registered Nurse; Visit Provider Internal Medicine Pulmonary Disease
DX: J44.9 Chronic obstructive pulmonary disease, unspecified (principal); R91.8 Other nonspecific abnormal finding of lung field
CPT/HCPCS: 71250

== ENCOUNTER 2024-10-16 10:11 | Outpatient (CLI) | payer MEDICARE, MEDICAID, SELFPAY ==
--- NOTE | ~2024-10-16 | US_ITS ---
EXAM: RENAL ULTRASOUND HISTORY: Elevated serum creatinine COMPARISON: None FINDINGS: RIGHT KIDNEY: 12.6 x 5.6 x 5.5 cm. The parenchyma of the right kidney is unremarkable in echogenicity. No hydronephrosis or renal calculi. LEFT KIDNEY: 13.5 x 5.0 x 5.6 cm No hydronephrosis or renal calculi. The parenchyma of the left kidney is unremarkable in echogenicity. BLADDER: Suprapubic catheter in good position within the bladder. IMPRESSION: No hydronephrosis or renal calculi. No sonographic evidence to suggest the presence of medical renal disease Reviewed, dictated and finalized at location A.
== END 2024-10-16 10:12 | disposition home or self-care (01) ==
LOC: CHSIMG 10:13
PROVIDERS: PCP Registered Nurse; Visit Provider Registered Nurse
DX: R79.89 Other specified abnormal findings of blood chemistry (principal)
CPT/HCPCS: 76770